=== PATIENT | female | born 1990 | race African-American/Black ===

== ENCOUNTER 2018-02-17 08:33 | Emergency (ER) | payer OTHER ==
[~2018-02-17] VITALS: Ht 167.6 cm; Wt 71.7 kg
[2018-02-17] MEDS ORDERED: NOHOMEMEDICATIONS (08:53)
[2018-02-17 09:18] LABS: URINE BILIRUBIN NEGATIVE (Negative); URINE BLOOD NEGATIVE (Negative); URINE CLARITY CLOUDY; URINE COLOR YELLOW; URINE GLUCOSE-RANDOM* NEGATIVE (Negative); URINE KETONES 1+ (Negative); URINE LEUKOCYTES 2+ (Negative); URINE NITRITE NEGATIVE (Negative); URINE PROTEIN (DIPSTICK) NEGATIVE (Negative); URINE SPECIFIC GRAVITY 1.025 (1.005-1.035); URINE UROBILINOGEN 0.2 E.U./dl (0.2-1.0)
[2018-02-17 09:54] LABS: CASTS None Seen /LPF (None Seen); CRYSTALS None Seen /LPF (None Seen); SQUAMOUS >10 Many /LPF (0-3); URINE RBC 0-2 Rare /HPF (0-2)
[2018-02-17] MEDS ORDERED: ONDANSETRON HCL4 M2 PO (11:20)
[2018-02-17 11:51] VITALS: BP 90/51
== END 2018-02-17 11:51 | disposition home or self-care (01) ==
LOC: ER 08:33
PROVIDERS: Student in an Organized Health Care Education/Training Program
DX: R51 Headache (principal); R11.2 Nausea with vomiting, unspecified